=== PATIENT | male | born 1975 | race Caucasian/White ===

== ENCOUNTER 2024-08-23 03:15 | Emergency (ER) | payer MEDICAID ==
[~2024-08-23] VITALS: Ht 165.1 cm; Wt 90.0 kg
[2024-08-23 03:25] VITALS: O2SAT 98
[2024-08-23 03:26] VITALS: BP 131/85; PULSE 96; RESP 18; TEMP 36.9; O2SAT 98
[2024-08-23] MEDS ORDERED: NAPR-1176 MT (03:42)
== END 2024-08-23 04:25 | disposition home or self-care (01) ==
LOC: ER 03:15
DX: L60.0 Ingrowing nail (principal); Z79.1 Long term (current) use of non-steroidal anti-inflammatories (NSAID)
CPT/HCPCS: 99282

== ENCOUNTER 2024-08-23 21:03 | Emergency (ER) | payer MEDICAID ==
[~2024-08-23 21:03] MED LIST: NAPR-1176 MT
[2024-08-23 21:11] VITALS: PULSE 100; RESP 16; O2SAT 99
== END 2024-08-24 00:50 | disposition left against medical advice (07) ==
LOC: ER 21:03
DX: M79.669 Pain in unspecified lower leg (principal); Z53.21 Procedure and treatment not carried out due to patient leaving prior to being seen by health care provider